=== PATIENT | female | born 1980 | race Caucasian/White ===

== ENCOUNTER 2021-11-15 19:46 | Emergency (ER) | payer BC, MEDICAID ==
[2021-11-15] MEDS ORDERED: Acetaminophen/oxyCODONE 325-10 MG Tab PO ONE (20:10)
[2021-11-15] MEDS ORDERED: LORazepam 1 MG Tab PO ONE (22:14)
[2021-11-15 22:56] VITALS: BP 137/77; PULSE 88
== END 2021-11-15 22:57 | disposition home or self-care (01) ==
LOC: MW.ED 19:46
DX: O02.1 Missed abortion (principal); Z88.8 Allergy status to other drugs, medicaments and biological substances
CPT/HCPCS: 76801; 81001; 99284; A9270

== ENCOUNTER 2022-07-08 21:10 | Emergency (ER) | payer BC ==
[2022-07-08] MEDS ORDERED: Cyclobenzaprine 10 MG Tab PO ONE (21:34)
[2022-07-08] MEDS ORDERED: Ibuprofen 600 MG Tab PO ONE (21:34)
[2022-07-08] MEDS ORDERED: Acetaminophen/oxyCODONE 325-5 MG Tab PO ONE (21:34)
[2022-07-08 22:59] VITALS: BP 131/96; PULSE 76
== END 2022-07-08 22:59 | disposition home or self-care (01) ==
LOC: MW.ED 21:10
DX: S70.01XA Contusion of right hip, initial encounter (principal); S30.0XXA Contusion of lower back and pelvis, initial encounter; Z88.1 Allergy status to other antibiotic agents; W18.09XA Striking against other object with subsequent fall, initial encounter
CPT/HCPCS: 70450; 72125; 72131; 72192; 99283; A9270

== ENCOUNTER 2024-03-05 22:06 | Emergency (ER) | payer SELFPAY ==
[2024-03-05 22:47] LABS: APPEARANCE,URINE SLT CLOUDY; BILIRUBIN,URINE NEGATIVE (NEGATIVE); COLOR,URINE YELLOW; GLUCOSE,URINE NEGATIVE (NEGATIVE); KETONES,URINE NEGATIVE (NEGATIVE); LEUKOCYTE ESTERASE,URINE NEGATIVE (NEGATIVE); NITRITE,URINE NEGATIVE (NEGATIVE); OCCULT BLOOD,URINE LARGE (NEGATIVE); PROTEIN,URINE NEGATIVE (NEGATIVE); UROBILINOGEN,URINE 0.2 EU/dL (<2.0)
[2024-03-05 22:56] LABS: BACTERIA,URINE FEW (NEGATIVE); RBC,URINE 50-75 (0-2/HPF); SQUAMOUS EPITHELIAL CELLS,UR OCCASIONAL; WBC,URINE 0-1 (0-5/HPF)
[2024-03-05 22:57] LABS: MUCUS,URINE LIGHT (NONE-MOD)
[2024-03-06 00:24] VITALS: BP 126/61; PULSE 88
== END 2024-03-06 00:16 | disposition home or self-care (01) ==
LOC: MW.ED 22:06
DX: N93.8 Other specified abnormal uterine and vaginal bleeding (principal); N84.0 Polyp of corpus uteri; I25.10 Atherosclerotic heart disease of native coronary artery without angina pectoris; Z86.73 Personal history of transient ischemic attack (TIA), and cerebral infarction without residual deficits; Z79.899 Other long term (current) drug therapy; Z88.0 Allergy status to penicillin; Z88.1 Allergy status to other antibiotic agents
CPT/HCPCS: 76830; 76830-26; 81001; 81025; 99284